=== PATIENT | male | born 2000 | race Caucasian/White ===

== ENCOUNTER 2023-02-14 14:07 | Emergency (ER) | payer BC, SELFPAY ==
--- NOTE | ~2023-02-14 | US_ITS ---
EXAMINATION: US scrotum doppler DATE: 02/14/2023 15:12 INDICATION: Right testicular pain TECHNIQUE: Testicular sonogram utilizing grayscale and Doppler COMPARISON: None. FINDINGS: The right testis measures 4.2 x 2.1 x 3.3 cm. The left testis measures 3.6 x 1.9 x 2.4 cm. Symmetric normal grayscale appearance to both testes. There is normal vascular flow to both testes. The right e pididymis is normal with normal vascular flow. The left epididymis is normal with normal vascular francis w. There is no varicocele or hydrocele. IMPRESSION: 1. Normal scrotal ultrasound. Reviewed, dictated and finalized at location A.
[2023-02-14 14:15] VITALS: BP 131/66; PULSE 101; RESP 20; TEMP 36.9; O2SAT 98
[2023-02-14 16:36] LABS: Appearance Urine Clear (Clear); Bilirubin Urine Negative (Negative); Blood Urine Negative (Negative); Color Urine Yellow (Yellow); Glucose Urine UA Negative (Negative); Ketones Urine Negative (Negative); Leukocyte Esterase Ur Negative LEU/UL (Negative); Nitrate Urine Negative (Negative); Protein Urine Negative (Negative); Specific Grav Ur 1.022 (1.001-1.035); Urobilinogen Urine 0.2 mg/dL (<2.0); pH Urine 6.5 (5.0-9.0)
[2023-02-14 16:53] LABS: Add Urine Microscopic? NO
[2023-02-14 16:55] VITALS: BP 125/74; PULSE 88; RESP 18; O2SAT 99
--- NOTE | 2023-02-14 18:21 | ED.GENADULT ---
HPI - General Adult General Chief complaint: Urogenital-Male Stated complaint: right groin pain Time Seen by Provider: 02/14/23 16:19 History of Present Illness HPI narrative: Patient is a 23-year-old male who presents ER with pain to that his right groin. Began this morning. Reports he was sexually active yesterday with his girlfriend who he was told has a UTI. No urethral discharge or dysuria. Did not have pain immediately after having sex. No discomfort in his testicle. No blood in his urine. Related Data Allergies Allergy/AdvReac Type Severity Reaction Status Date / Time No Known Allergies Allergy Verified 02/14/23 16:23 Review of Systems Gastrointestinal: Gastrointestinal: Reports no additional gastrointestinal complaints Genitourinary: Genitourinary: Denies hematuria, Denies dysuria, Denies penile discharge, Denies testicular pain and Denies urinary frequency Comments: Right groin pain PMFSH Past Medical History Medical History (Updated 02/14/23 @ 19:54 by Ephraim Smith MD) Healthy adult male Surgical History Surgical History (Updated 02/14/23 @ 18:22 by Ephraim Smith MD) No history of previous surgery Exam Narrative: GENERAL: Well-appearing, well-nourished, and in no acute distress. HEAD: Normocephalic, atraumatic. EXTREMITIES: Normal range of motion. No edema. : Normal-appearing external genitalia with a circumcised penis, no urethral discharge, no tenderness to the testicles bilaterally. There is some right inguinal discomfort with a palpable nodule in the area. No hernia noted. SKIN: Warm, dry, no rash. NEURO: Alert and oriented x3. PSYCH: Normal mood and affect. Course Course Emergency Course: No evidence of infection. May have inflamed lymph node in this causing discomfort. Recommend anti-inflammatories and follow-up with PCP. Vital Signs Vital signs: Vital Signs Temperature 98.5 F 02/14/23 14:15 Pulse Rate 101 H 02/14/23 14:15 Respiratory Rate 20 02/14/23 14:15 Blood Pressure 131/66 02/14/23 14:15 Pulse Oximetry 98 02/14/23 14:15 Oxygen Delivery Room Air 02/14/23 14:15 Temperature 98.5 F 02/14/23 14:15 Pulse Rate 88 02/14/23 16:55 Respiratory Rate 18 02/14/23 16:55 Blood Pressure 125/74 02/14/23 16:55 Pulse Oximetry 99 02/14/23 16:55 Oxygen Delivery Room Air 02/14/23 14:15 Medical Decision Making Vital Signs Vital Signs: Vital Signs Temperature 98.5 F 02/14/23 14:15 Pulse Rate 101 H 02/14/23 14:15 Respiratory Rate 20 02/14/23 14:15 Blood Pressure 131/66 02/14/23 14:15 Pulse Oximetry 98 02/14/23 14:15 Oxygen Delivery Room Air 02/14/23 14:15 Temperature 98.5 F 02/14/23 14:15 Pulse Rate 88 02/14/23 16:55 Respiratory Rate 18 02/14/23 16:55 Blood Pressure 125/74 02/14/23 16:55 Pulse Oximetry 99 02/14/23 16:55 Oxygen Delivery Room Air 02/14/23 14:15 Lab Data Labs: Lab Results 02/14/23 Range/Units 16:21 Urine Color Yellow (Yellow) Urine Appearance Clear (Clear) Urine pH 6.5 (5.0-9.0) Ur Specific [place] 1.022 (1.001-1.035) Urine Protein Negative (Negative) mg/dL Urine Glucose (UA) Negative (Negative) mg/dL Urine Ketones Negative (Negative) mg/dL Ur Blood (Man) Negative (Negative) Urine Nitrate Negative (Negative) Urine Bilirubin Negative (Negative) Urine Urobilinogen 0.2 (<2.0) mg/dL Leukocyte Esterase Rfl Negative (Negative) CAROLYN/UL C. trachomatis (PCR) Not detected (NOT DETECTE) N. gonorrhoeae (PCR) Not detected (NOT DETECTE) Urine Characteristics Clear Discharge Plan Discharge Clinical Impression: Groin pain Patient Disposition: Home, Self-Care Condition: Stable Instructions: Groin Pain (ED) Additional Instructions: You may have inflammation from a traumatic injury or an inflamed lymph node. Otherwise take an
[2023-02-14 19:19] LABS: Chlamydia trachomatis NOT DETECTED (NOT DETECTE); Neisseria gonorrhoeae PCR NOT DETECTED (NOT DETECTE)
== END 2023-02-14 20:41 | disposition home or self-care (01) ==
PROVIDERS: Emergency Provider Emergency Medicine
DX: R10.31 Right lower quadrant pain (principal)
CPT/HCPCS: 76870; 81003; 87491; 87591; 93976; 99284